=== PATIENT | female | born 1990 | race Caucasian/White ===

== ENCOUNTER 2017-11-12 19:29 | Emergency (ER) | payer OTHER, SELFPAY ==
[2017-11-12 19:38] VITALS: BP 118/78; PULSE 80; RESP 18; TEMP 36.2; O2SAT 99; BMI 23.6
--- NOTE | 2017-11-12 20:58 | ED_ITS ---
HPI - Headache <LAINE Joshi-BC - Last Filed: 11/12/17 22:28> General Chief Complaint: Headache Stated Complaint: HERE FOR A MIGRAINE Time Seen by Provider: 11/12/17 20:35 History of Present Illness HPI Narrative: Patient presents with a chief complaint of worst headache of her life. She has had migraines in the past, however this 1 has not responded to several Imitrex or ibuprofen. She complains of light sensitivity. She does complain of nausea. She also complains of noise sensitivity. She states she is worried because this headache is the worst of her life and she has never had a migraine this bad before. She denies any confusion, altered mental status, vomiting. She does complain of nausea. Denies possibility of as she is menstruating at this time. Thinks that might be causing the headache. MD Complaint: migraine Related Data Home Medications Medication Instructions Recorded Confirmed spironolactone 50 mg PO BID #0 05/27/17 acetaminophen-pamabrom [Midol] 1,000 11/12/17 ibuprofen 400 mg PO QID PRN 11/12/17 11/12/17 Previous Rx's Medication Instructions Recorded sumatriptan succinate [Imitrex] 100 mg PO PRN PRN #10 tab 03/07/16 norgestimate-ethinyl estradiol 1 tab PO QDAY #3 pac 06/01/17 [Ortho-Cyclen (28)] Allergies Allergy/AdvReac Type Severity Reaction Status Date / Time amoxicillin [From AUGMENTIN] AdvReac Severe C-DIFF Verified 11/12/17 19:41 clavulanic acid AdvReac Severe C-Dif Unverified 09/30/17 12:33 [From AUGMENTIN] Review of Systems <KENNETH JoshiBC - Last Filed: 11/12/17 22:28> Review of Systems GENERAL: See HPI HEENT: Denies sinus pain, ear pain, sore throat, difficulty swallowing, dizziness. RESPIRATORY: Denies dyspnea, cough, wheezing, hemoptysis, sputum. CARDIOVASCULAR: Denies chest pain, palpitations, orthopnea, edema, GASTROINTESTINAL: Denies nausea, vomiting, abdominal pain, diarrhea, constipation, melena. : Denies dysuria, frequency, incontinence, hematuria, urinary retention. MUSCULOSKELETAL: denies weakness, joint pain, or bony pain SKIN: Denies rash, skin lesions, or other NEUROLOGIC: See HPI PSYCHIATRIC: No concerning psychosocial issues. 12 point review of systems is negative except for those stated above Exam <JESIKA Joshi - Last Filed: 11/12/17 22:28> Narrative Exam Narrative: GENERAL: This is a well-nourished, well-developed patient, no distress lying in bed. HEAD: Atraumatic. Normocephalic. No temporal or scalp tenderness. EYES: Pupils equal round and reactive. Extraocular motions intact. No scleral icterus. No injection or drainage. ENT: Nose without bleeding, purulent drainage or septal hematoma. Throat without erythema, tonsillar hypertrophy or exudate. Uvula midline. Airway patent. NECK: Trachea midline. No JVD or lymphadenopathy. Supple, nontender, no meningeal signs. CARDIOVASCULAR: Regular rate and rhythm without murmurs, gallops, or rubs. RESPIRATORY: Clear to auscultation. Breath sounds equal bilaterally. No wheezes , rales, or rhonchi. GASTROINTESTINAL: Abdomen soft, non-tender, nondistended. No hepato-splenomegaly , or palpable masses. No guarding. EXTREMITIES: No clubbing, cyanosis, or edema. No joint tenderness, effusion, or edema noted. BACK: Nontender without deformity or crepitance. No flank tenderness. NEURO: AOx3. Appropriate and interactive. SKIN: No rash or erythema. Initial Vital Signs Initial Vital Signs: Vital Signs Temperature 97.2 F L 11/12/17 19:38 Pulse Rate 80 11/12/17 19:38 Respiratory Rate 18 11/12/17 19:38 Blood Pressure 118/78 11/12/17 19:38 Pulse Oximetry 99 11/12/17 19:38 <Arlet Zuniga DO - Last Filed: 11/13/17 03:13> Initial Vital Signs Initial Vital Signs: Vital Signs Temperature 97.2 F L 11/12/17 19:38 Pulse Rate 80 11/12/17 19:38 Respiratory Rate 18 11/12/17 19:38 Blood Pressure 118/78 11/12/17 19:38 Pulse Oximetry 99 11/12/17 19:38 Course <JESIKA Joshi - Last Filed: 11/12/17 22:28> Hospital Course: The patient presents with worst headache of her life. She has a history of migraines. Patient has taken ibuprofen several hours ago as well as several Imitrex. Headache is not abated. Discussed with patient risks of CT scan of radiation however patient requested CT as her headache has never been this bad. CT scan was done to rule out an intracranial process. She was typed given IV fluid, Reglan, Toradol, Benadryl and had substantial pain relief. She left the emergency department a 2 to 3/10 level pain. She had no questions or concerns upon discharge. Discussed return precautions with patient. Orders Ordered: ED Orders 11/12/17 20:56 CT head/brain wo con Stat Discontinued Medications Diphenhydramine HCl (Benadryl) 25 mg IV NOW ONE Stop: 11/12/17 20:54 Last Admin: 11/12/17 21:27 Dose: 25 mg Sodium Chloride (Normal Saline 0.9%) 1,000 mls @ 1,000 mls/hr IV BOLUS ONE Stop: 11/12/17 21:52 Last Infusion: 11/12/17 22:18 Dose: 0 mls/hr Admin: 11/12/17 21:27 Dose: 1,000 mls/hr Ketorolac Tromethamine (Toradol) 30 mg IV NOW ONE Stop: 11/12/17 20:54 Last Admin: 11/12/17 21:28 Dose: 30 mg Metoclopramide HCl (Reglan) 10 mg IV NOW ONE Stop: 11/12/17 20:54 Last Admin: 11/12/17 21:28 Dose: 10 mg Vital Signs - 8 hr 11/12/17 19:38 11/12/17 22:18 Temperature 97.2 F L Pulse Rate 80 66 Respiratory Rate 18 15 Blood Pressure 118/78 95/66 Pulse Oximetry 99 98 <Arlet Zuniga, - Last Filed: 11/13/17 03:13> Orders Ordered: ED Orders 11/12/17 20:56 CT head/brain wo con Stat Discontinued Medications Diphenhydramine HCl (Benadryl) 25 mg IV NOW ONE Stop: 11/12/17 20:54 Last Admin: 11/12/17 21:27 Dose: 25 mg Sodium Chloride (Normal Saline 0.9%) 1,000 mls @ 1,000 mls/hr IV BOLUS ONE Stop: 11/12/17 21:52 Last Infusion: 11/12/17 22:18 Dose: 0 mls/hr Admin: 11/12/17 21:27 Dose: 1,000 mls/hr Ketorolac Tromethamine (Toradol) 30 mg IV NOW ONE Stop: 11/12/17 20:54 Last Admin: 11/12/17 21:28 Dose: 30 mg Metoclopramide HCl (Reglan) 10 mg IV NOW ONE Stop: 11/12/17 20:54 Last Admin: 11/12/17 21:28 Dose: 10 mg Vital Signs - 8 hr 11/12/17 19:38 11/12/17 22:18 Temperature 97.2 F L Pulse Rate 80 66 Respiratory Rate 18 15 Blood Pressure 118/78 95/66 Pulse Oximetry 99 98 MDM - Headache <JESIKA Joshi - Last Filed: 11/12/17 22:28> Differential Diagnosis Differential diagnosis: Likely migraine Imaging Data CT scan - head: Radiologist's impression: [place] [address] CT Scan Report Signed Patient: Elizabeth Anderson MR#: [id number] : 1990 Acct:[id number] Age/Sex: 27 / F Date of Service: 11/12/17 Loc: ED Accession Number: [id number] Procedure: CT head/brain wo con Ordering Provider: Giovanna Bush PROCEDURE: CT HEAD/BRAIN WO CON INDICATIONS: headache 03/31 TECHNIQUE: Noncontrast 4.5 mm thick angled axial sections acquired from the foramen magnum to the vertex, with coronal and sagittal reformats. For radiation dose reduction, the following was used: automated exposure control, adjustment of mA and/or kV according to patient size. COMPARISON: None. FINDINGS: Image quality: Excellent. CSF spaces: Basal cisterns are patent. No extra-axial fluid collections. Ventricles are normal in size and shape. Brain: No midline shift. No intracranial masses or hemorrhage. Ramirez-white matter interface is normal. Skull and face: Calvarium and visualized facial bones are intact, without suspicious lesions. Sinuses: Visualized sinuses and mastoids are clear. IMPRESSION: 1. No acute intracranial process. Dictated by: Rupal Marlow M.D. on 11/12/2017 at 21:14 Approved by: Rupal Marlow M.D. on 11/12/2017 at 21:15 MDM Narrative Medical decision making narrative: Patient presented with ?worst headache ever? however her CT scan came back normal and she was responsive to headache cocktail. Discussed at length with patient return precautions, follow up with primary care as well as not taking ibuprofen for 6-8 hr after Toradol. She had no questions or concerns upon discharge. Discharge Plan Departure Patient Disposition: Home, Self-Care Clinical Impression: Migraine Discharge Date/Time: 11/12/17 22:33 Interventions: ED Discharge Assessment Last Done: 11/12/17 22:18 Instructions: DI for Migraine Activity Restrictions/Additional Instructions: Your head CT came back negative. We gave you some medication for her headache, including a nausea medication, Benadryl, fluids and Toradol. Please do not take ibuprofen for another 6-8 hours because of the Toradol. Come back to the emergency department if you need to, but I suggest swelling up with your primary care provider regarding your migraines. Prescriptions: No Action sumatriptan succinate [Imitrex] 100 MG tablet 100 mg PO PRN PRNQty: 10 RF: 3 spironolactone 50 MG tablet 50 mg PO BID Qty: 0 RF: 0 norgestimate-ethinyl estradiol [Ortho-Cyclen (28)] 1 EACH tablet 1 tab PO QDAY Qty: 3 RF: 0 ibuprofen 200 mg Tablet 400 mg PO QID PRN (Reason: Pain, Moderate) RF: 0 acetaminophen-pamabrom [Midol] 500-25 mg Tablet 1,000 RF: 0 Referrals: Fabiola Carlson PA-C [Primary Care Provider] - <Arlet Zuniga DO - Last Filed: 11/13/17 03:13> Cosign ED Attending Cindy Attestation: I was immediately available in the department for consultation. Documentation has been reviewed. I agree with assessment and plan.
[2017-11-12] MEDS: diphenhydrAMINE 50 MG/ML VIAL 25 MG IV (21:27)
[2017-11-12] MEDS: SODIUM CHLORIDE 0.9% 1,000 ML 1000 ML IV (21:27)
[2017-11-12] MEDS: METOCLOPRAMIDE 10 MG/2 ML INJ IV (21:28)
[2017-11-12] MEDS: KETOROLAC 60 MG/2 ML VIAL 30 MG IV (21:28)
[2017-11-12 22:18] VITALS: BP 95/66; PULSE 66; RESP 15; O2SAT 98
== END 2017-11-12 22:33 | disposition home or self-care (01) ==
PROVIDERS: Emergency Provider Nurse Practitioner Family; Family Provider Physician Assistant; PCP Physician Assistant
DX: G43.909 Migraine, unspecified, not intractable, without status migrainosus (principal)
CPT/HCPCS: 70450; 81003; 81025; 96361; 96374; 96375; 99283; 99284; J1200; J1885; J2765